=== PATIENT | male | born 1965 | race American Indian/Alaskan Native ===

== ENCOUNTER 2019-06-20 11:32 | Emergency (ER) | payer OTHER ==
[2019-06-20 11:53] VITALS: BP 110/70
--- NOTE | 2019-06-20 11:55 | Event Note ---
ED Screening Note Date of service: 06/20/19 Time: 11:53 ED Screening Note: 54 y/o male comes in for right arm pain and weakness. Works as a industrial maintenance electrician. This initial assessment/diagnostic orders/clinical plan/treatment(s) is/are subject to change based on patients health status, clinical progression and re- assessment by fellow clinical providers in the ED. Further treatment and workup at subsequent clinical providers discretion. Patient/guardian urged not to elope from the ED as their condition may be serious if not clinically assessed and managed. Initial orders include:
[2019-06-20] MEDS ORDERED: TORADOL IM ONE (14:32)
--- NOTE | 2019-06-20 14:35 | Emergency Department Report ---
Upper Extremity - HPI Chief Complaint: Extremity Problem,Nontraumatic Stated Complaint: RT SIDE WEAK Time Seen by Provider: 06/20/19 11:53 Upper Extremity: Right Shoulder Occurred When: Today Mechanism: Other (no injury) Severity: moderate Symptoms: Yes Pain with Movement, Yes Limited Range of Movement, No Deformity, No Numbness, No Weakness, No Swelling, No Bruising/Ecchymosis, No Laceration or Abrasion ED Review of Systems ROS: Stated complaint: RT SIDE WEAK Other details as noted in HPI Comment: All other systems reviewed and negative Constitutional: denies: chills, fever Respiratory: denies: cough, orthopnea, shortness of breath, SOB with exertion, SOB at rest, wheezing Cardiovascular: denies: chest pain Gastrointestinal: denies: abdominal pain, nausea, vomiting Musculoskeletal: denies: back pain Neurological: denies: headache, weakness, numbness, paresthesias, confusion, abnormal gait ED Past Medical Hx - Past Medical History Hx Diabetes: Yes - Social History Smoking Status: Never Smoker Substance Use Type: None - Medications Home Medications: Home Medications Medication Instructions Recorded Confirmed Last Taken Type Insulin Glargine,Hum.rec.anlog 10 units SUB-Q QHS 02/08/14 06/12/14 06/11/14 19:00 History [Lantus Solostar] Ibuprofen [Motrin 800 MG tab] 800 mg PO Q8H PRN #20 tablet 06/12/14 Unknown Rx Griseofulvin, Microsize [Grifulvin 500 mg PO QDAY #14 tablet 10/16/14 Unknown Rx V] Terbinafine [Lamisil At 1%] 1 applicatio TP BID #1 tube 10/16/14 Unknown Rx Upper Extremity Exam - Exam General: Vital signs noted. No distress. Alert and acting appropriately. Head and Torso: No HEENT Abnormality, No Neck Tenderness, No Chest/Lungs Abnormality, No Abdominal Tenderness, No Back Tenderness Shoulder Exam: Yes Shoulder Tenderness, Yes Normal Range of Motion in Shoulder, No Clavicle Tenderness, No Shoulder Deformity, No AC Joint Tenderness Arm Exam: No Arm/Humerus Tenderness, No Arm Deformity Elbow: No Elbow Tenderness, No Normal Range of Motion in Elbow, No Elbow Deformity Forearm: No Forearm Tenderness, No Forearm Deformity, No Pain with Pronation, No Pain with Supination Wrist: No Wrist Tenderness, No Normal ROM in Wrist, No Wrist Deformity, No Snuffbox Tenderness, No Pain with Axial Thumb Compression ED Course Vital Signs 06/20/19 11:51 Temperature 99.0 F Pulse Rate 110 H Respiratory 18 Rate Blood Pressure 110/70 O2 Sat by Pulse 100 Oximetry Critical care attestation.: If time is entered above; I have spent that time in minutes in the direct care of this critically ill patient, excluding procedure time. ED Disposition Clinical Impression: Tendinitis of right shoulder Disposition: - TO HOME OR SELFCARE Is pt being admited?: No Condition: Stable Instructions: Rotator Cuff Tendinitis (ED) Referrals: PRIMARY CARE, [Referring] - 3-5 Days
== END 2019-06-20 14:46 | disposition home or self-care (01) ==
LOC: ED 11:32
DX: M75.21 Bicipital tendinitis, right shoulder (principal); E11.9 Type 2 diabetes mellitus without complications; Z79.4 Long term (current) use of insulin; Z79.899 Other long term (current) drug therapy
CPT/HCPCS: 96372; 99282; J1885

== ENCOUNTER 2019-09-02 02:57 | Emergency (ER) | payer OTHER ==
--- NOTE | 2019-09-02 04:20 | Emergency Department Report ---
ED General Adult HPI - General Chief complaint: Abdominal Pain Stated complaint: CONSTIPATION Time Seen by Provider: 09/02/19 03:49 Source: patient Mode of arrival: Ambulatory Limitations: No Limitations - History of Present Illness Initial comments: Patient is a 54-year-old male presents to the emergency room with complaints of constipation that began yesterday. He denies any abdominal pain, nausea, vomiting, diarrhea, blood in the stool, rectal bleeding, fever, chills, unexplained weight loss. Patient has not taken anything for his symptoms. Vinicius roberts states he has a past medical history of diabetes and neuropathy. He denies any allergies to medications. States he has not had a colonoscopy performed. - Related Data Home Medications Medication Instructions Recorded Confirmed Last Taken Insulin Glargine,Hum.rec.anlog 10 units SUB-Q QHS 02/08/14 06/12/14 06/11/14 19:00 [Lantus Solostar] Previous Rx's Medication Instructions Recorded Last Taken Type Ibuprofen [Motrin 800 MG tab] 800 mg PO Q8H PRN #20 tablet 06/12/14 Unknown Rx Griseofulvin, Microsize [Grifulvin 500 mg PO QDAY #14 tablet 10/16/14 Unknown Rx V] Terbinafine [Lamisil At 1%] 1 applicatio TP BID #1 tube 10/16/14 Unknown Rx Naproxen [Naprosyn] 500 mg PO BID #14 tablet 06/20/19 Unknown Rx Docusate Sodium [Colace] 100 mg PO BID PRN #10 capsule 09/02/19 Unknown Rx Magnesium Citrate [Citrate of 296 ml PO ONCE #1 bottle 09/02/19 Unknown Rx Magnesia] Allergies Allergy/AdvReac Type Severity Reaction Status Date / Time No Known Allergies Allergy Verified 06/12/14 11:41 ED Review of Systems ROS: Stated complaint: CONSTIPATION Other details as noted in HPI Comment: All other systems reviewed and negative ED Past Medical Hx - Past Medical History Hx Diabetes: Yes - Surgical History Past Surgical History?: No - Social History Smoking Status: Never Smoker Substance Use Type: None - Medications Home Medications: Home Medications Medication Instructions Recorded Confirmed Last Taken Type Insulin Glargine,Hum.rec.anlog 10 units SUB-Q QHS 02/08/14 06/12/14 06/11/14 19:00 History [Lantus Solostar] Ibuprofen [Motrin 800 MG tab] 800 mg PO Q8H PRN #20 tablet 06/12/14 Unknown Rx Griseofulvin, Microsize [Grifulvin 500 mg PO QDAY #14 tablet 10/16/14 Unknown Rx V] Terbinafine [Lamisil At 1%] 1 applicatio TP BID #1 tube 10/16/14 Unknown Rx Naproxen [Naprosyn] 500 mg PO BID #14 tablet 06/20/19 Unknown Rx Docusate Sodium [Colace] 100 mg PO BID PRN #10 capsule 09/02/19 Unknown Rx Magnesium Citrate [Citrate of 296 ml PO ONCE #1 bottle 09/02/19 Unknown Rx Magnesia] ED Physical Exam - General Limitations: No Limitations General appearance: alert, in no apparent distress - Head Head exam: Present: atraumatic, normocephalic - Eye Eye exam: Present: normal appearance - ENT ENT exam: Present: mucous membranes moist - Respiratory Respiratory exam: Present: normal lung sounds bilaterally. Absent: respiratory distress, wheezes, rales, rhonchi, stridor, chest wall tenderness, accessory muscle use, decreased breath sounds, prolonged expiratory - Cardiovascular Cardiovascular Exam: Present: regular rate, normal rhythm, normal heart sounds. Absent: systolic murmur, diastolic murmur, rubs, gallop - GI/Abdominal GI/Abdominal exam: Present: soft, normal bowel sounds. Absent: distended, tenderness, guarding, rebound, rigid - Neurological Exam Neurological exam: Present: alert, oriented X3 - Psychiatric Psychiatric exam: Present: normal affect, normal mood - Skin Skin exam: Present: warm, dry, intact ED Course Vital Signs 09/02/19 06:14 Temperature 98.2 F Pulse Rate 112 H Respiratory 18 Rate Blood Pressure 109/74 [Right] O2 Sat by Pulse 99 Oximetry ED Medical Decision Making - Medical Decision Making Patient is a 54-year-old male presents to the emergency room with complaints of constipation that began yesterday. He denies any abdominal pain, nausea, vomiting, diarrhea, blood in the stool, rectal bleeding, fever, chills, unexplained weight loss. Patient has not taken anything for his symptoms. Patient states he has a past medical history of diabetes and neuropathy. He denies any allergies to medications. States he has not had a colonoscopy performed. no abd tenderness on exam, normal bowel sounds, no obstructive symptoms. pt given prescription for magnesium citrate and colace. advised pt to please take medication as prescribed. please increase your fiber intake. drink plenty of water. follow up with your primary care doctor in the next 2-3 days. return to the emergency room for any new or worsening symptoms. please discuss with your doctor about scheduling your screening colonoscopy. Critical care attestation.: If time is entered above; I have spent that time in minutes in the direct care o f this critically ill patient, excluding procedure time. ED Disposition Clinical Impression: Constipation Qualifiers: Constipation type: unspecified constipation type Qualified Code(s): K59.00 - Constipation, unspecified Disposition: TO HOME OR SELFCARE Is pt being admited?: No Does the pt Need Aspirin: No Condition: Stable Instructions: Constipation (ED), High Fiber Diet (ED) Additional Instructions: please take medication as prescribed. please increase your fiber intake. drink plenty of water. follow up with your primary care doctor in the next 2-3 days. return to the emergency room for any new or worsening symptoms. please discuss with your doctor about scheduling your screening colonoscopy. Prescriptions: Magnesium Citrate [Citrate of Magnesia] 296 ml PO ONCE #1 bottle Docusate Sodium [Colace] 100 mg PO BID PRN #10 capsule PRN Reason: Constipation Referrals: your, primary care doctor [Other] - 2-3 Days Time of Disposition: 04:28 Print Language: ROMANSH
[2019-09-02 06:15] VITALS: BP 109/74
== END 2019-09-02 04:45 | disposition home or self-care (01) ==
LOC: ED 02:57
DX: K59.00 Constipation, unspecified (principal); E11.40 Type 2 diabetes mellitus with diabetic neuropathy, unspecified; Z79.4 Long term (current) use of insulin; Z79.899 Other long term (current) drug therapy
CPT/HCPCS: 99282